=== PATIENT | male | born 1945 | race Hispanic/Latino ===

== ENCOUNTER 2023-09-04 14:53 | Emergency (ER) | payer OTHER ==
[~2023-09-04] VITALS: Ht 170.2 cm; Wt 104.3 kg
[~2023-09-04 14:53] MED LIST: ALBU8.5H8 IH; ATOR40TA71 PO; BUSP15TA3 PO; DOCU-116 PO; FURO40TA5 PO; GLIP10TA9 PO; ICOS1CAP PO; IPRA3AMP24 IH; LOSA50TA64 PO; METF-446 PO; OMEP40CA21 PO; PRED5TAB PO
[2023-09-04] MEDS ORDERED: MORPHINE 2 MG SYG IVP ONE (16:00)
[2023-09-04] MEDS ORDERED: LACTATED RINGERS 1000ML 1,000 ML IV ONE (16:00)
[2023-09-04] MEDS ORDERED: IPRATROPIUM/ALBUTEROL SULFATE 3 ML SOLUTION IH ONE (16:00)
[2023-09-04 16:12] VITALS: PULSE 80; RESP 18
[2023-09-04 16:15] LABS: BASOPHILS # (AUTO) 0.06 K/uL (0.00-0.20); BASOPHILS % (AUTO) 0.6 % (0.0-5.0); EOSINOPHILS # (AUTO) 0.12 K/uL (0.00-0.70); EOSINOPHILS % (AUTO) 1.2 % (0.0-8.0); HEMATOCRIT 33.7 % (42-54); IMMATURE GRANULOCYTE ABSOLUTE 0.05 K/uL (0-1); LYMPHOCYTES # (AUTO) 1.4 K/uL (1.0-4.8); LYMPHOCYTES % (AUTO) 13.8 % (21.0-51.0); MEAN CORPUSCULAR HEMOGLOBIN 25.4 pg (27.0-33.0); MEAN CORPUSCULAR HGB CONC 31.8 g/dL (32.0-36.0); MONOCYTES # (AUTO) 0.8 K/uL (0.1-1.0); MONOCYTES % (AUTO) 8.3 % (3.0-13.0); NEUTROPHILS # (AUTO) 7.7 K/uL (1.8-7.7); NEUTROPHILS % (AUTO) 75.6 % (40.0-77.0); PLATELET COUNT (AUTO) 369 K/uL (130-400); RED BLOOD CELL COUNT(AUTO) 4.21 MIL/uL (4.50-6.20); RED CELL DISTRIBUTION WIDTH 18.7 % (11.0-15.5); WHITE BLOOD COUNT (AUTO) 10.2 K/uL (4.8-10.8)
[2023-09-04 16:23] LABS: CREATININE 1.5 mg/dL (0.5-1.5); POTASSIUM 4.1 mmol/L (3.5-5.1)
[2023-09-04 16:34] LABS: ALBUMIN 3.2 g/dL (3.5-5.0); BILIRUBIN,TOTAL 0.8 mg/dL (0.2-1.0)
[2023-09-04 17:24] VITALS: BP 136/55; PULSE 84; RESP 22; O2SAT 97
[2023-09-04 20:16] LABS: B-TYPE NATRIURETIC PEPTIDE 81 pg/mL (0-100)
== END 2023-09-04 18:15 | disposition home or self-care (01) ==
LOC: EDH 14:53
DX: M25.551 Pain in right hip (principal); J44.9 Chronic obstructive pulmonary disease, unspecified; E78.00 Pure hypercholesterolemia, unspecified; I10 Essential (primary) hypertension; F17.200 Nicotine dependence, unspecified, uncomplicated
CPT/HCPCS: 99285; 96374; 71045; 96361; 82550; 83874; 84484; 80053; 83880; 85025; 36415; 73502; 73552; 93005; 94640; J7120; J2270